=== PATIENT | female | born 1995 | race Caucasian/White ===

== ENCOUNTER 2024-09-28 13:59 | Emergency (ER) | payer OTHER, SELFPAY ==
[2024-09-28 14:00] VITALS: BP 122/74; PULSE 68; RESP 16; TEMP 36.6; O2SAT 100
--- NOTE | 2024-09-28 14:37 | ED_ITS ---
HPI - Female Genitourinary General Chief complaint: Vaginal Bleeding <Lisa Brambila APRN - Last Filed: 09/28/24 14:37> Stated complaint: vag bleed, has IUD? <Lisa Brambila APRN - Last Filed: 09/28/24 14:37> Time Seen by Provider: 09/28/24 14:25 <Lisa Brambila APRN - Last Filed: 09/28/24 14:37> Focused HPI: Patient i GENERAL: Well-appearing, well-nourished, and in no acute distress. HEAD: Normocephalic, atraumatic. CHEST: Clear to auscultation. ?No respiratory distress. HEART: Regular rate and rhythm.? NEURO: ?Alert and oriented x3. Patient screened in triage and initial orders placed.? ?Additional care and disposition to be based upon?diagnostic testing and treatment. <Lisa Brambila APRN - Last Filed: 09/28/24 14:37> History of Present Illness HPI Narrative: 29-year-old female presenting with vaginal spotting. States that she has a copper IUD and has regular periods. Her last 1 was at the beginning of this month. Over the last couple days she has had dark brown spotting with some mild cramping which is improved. She took 2 at-home tests which were negative. <Quyen Rangel MD - Last Filed: 09/28/24 19:26> Related Data Allergies/Adverse reactions: Allergies Allergy/AdvReac Type Severity Reaction Status Date / Time bacitracin Allergy Intermediate Unverified 08/09/14 17:09 neomycin Allergy Intermediate Unverified 08/09/14 17:09 polymyxin B Allergy Intermediate Unverified 08/09/14 17:09 <Lisa Brambila APRN - Last Filed: 09/28/24 14:37> Review of Systems Review of Systems: All systems reviewed & are unremarkable except as noted in HPI and below <Quyen Rangel MD - Last Filed: 09/28/24 19:26> Exam Narrative: GENERAL: Well-appearing, well-nourished, and in no acute distress. HEAD: Normocephalic, atraumatic. EYES: PERRLA and EOMI. ENT: Grossly unremarkable NECK: Supple. CHEST: No respiratory distress. HEART: Regular rate and rhythm ABDOMEN: Soft, nontender, nondistended EXTREMITIES: Normal range of motion SKIN: Warm, dry, no rash. NEURO: Alert and oriented x3. PSYCH: Normal mood and affect. <Quyen Rangel MD - Last Filed: 09/28/24 19:26> Course Vital Signs Vital signs: Vital Signs Temperature 97.8 F 09/28/24 14:00 Pulse Rate 68 09/28/24 14:00 Respiratory Rate 16 09/28/24 14:00 Blood Pressure 122/74 09/28/24 14:00 Pulse Oximetry 100 09/28/24 14:00 Oxygen Delivery Room Air 09/28/24 14:00 Temperature 97.8 F 09/28/24 14:00 Pulse Rate 68 09/28/24 14:00 Respiratory Rate 16 09/28/24 14:00 Blood Pressure 122/74 09/28/24 14:00 Pulse Oximetry 100 09/28/24 14:00 Oxygen Delivery Room Air 09/28/24 14:00 <Lisa Brambila, CENTRIFUGAL EXTRACTOR OPERATOR - Last Filed: 09/28/24 14:37> Vital Signs Temperature 97.8 F 09/28/24 14:00 Pulse Rate 68 09/28/24 14:00 Respiratory Rate 16 09/28/24 14:00 Blood Pressure 122/74 09/28/24 14:00 Pulse Oximetry 100 09/28/24 14:00 Oxygen Delivery Room Air 09/28/24 14:00 Temperature 97.8 F 09/28/24 14:00 Pulse Rate 68 09/28/24 14:00 Respiratory Rate 16 09/28/24 14:00 Blood Pressure 122/74 09/28/24 14:00 Pulse Oximetry 100 09/28/24 14:00 Oxygen Delivery Room Air 09/28/24 14:00 <Quyen Rangel MD - Last Filed: 09/28/24 19:26> MDM - Female Genitourinary MDM Narrative Medical decision making narrative: 29-year-old female presenting with a couple of days of vaginal spotting. Vitals are stable. Exam is unremarkable. Beta hCG is undetectable. Feel patient is safe for outpatient management. Discussed appropriate supportive care and return precautions. She is agreeable this plan. Discharged in stable condition. <Quyen Rangel MD - Last Filed: 09/28/24 19:26> Lab Data Labs: Lab Results 09/28/24 Range/Units 18:23 Beta HCG, Quant < 2.39 mIU/ML <Lisa Brambila APRN - Last Filed: 09/28/24 14:37> Lab Results 09/28/24 Range/Units 18:23 Beta HCG, Quant < 2.39 mIU/ML <Quyen Rangel MD - Last Filed: 09/28/24 19:26> Critical Care Time Critical Care Time Critical Care Time: No <Quyen Rangel MD - Last Filed: 09/28/24 19:26> Discharge Plan Discharge Clinical Impression: Dysfunctional uterine bleeding <Lisa Brambila APRN - Last Filed: 09/28/24 14:37> Patient Disposition: Home, Self-Care <Lisa Brambila APRN - Last Filed: 09/28/24 14:37> Condition: Stable <Lisa Brambila APRN - Last Filed: 09/28/24 14:37> Instructions: Antibiotic Form, Abnormal (Dysfunctional) Uterine Bleeding (ED) <Lisa Brambila APRN - Last Filed: 09/28/24 14:37> Additional Instructions: If your symptoms worsen or other concerning symptoms arise, please return to the ER. <Lisa Brambila APRN - Last Filed: 09/28/24 14:37> Patient Language: Yakut <Lisa Brambila APRN - Last Filed: 09/28/24 14:37> Follow-up/Referrals: Lj Santiago MD [Physician] - <Lisa Brambila APRN - Last Filed: 09/28/24 14:37>
[2024-09-28 18:59] LABS: Beta HCG Quantitative < 2.39 mIU/ML
[2024-09-28 19:30] VITALS: BP 120/72; PULSE 90; RESP 20; O2SAT 98
== END 2024-09-28 19:34 | disposition home or self-care (01) ==
PROVIDERS: Emergency Provider Emergency Medicine
DX: N93.8 Other specified abnormal uterine and vaginal bleeding (principal)
CPT/HCPCS: 36415; 84702; 99283

== ENCOUNTER 2025-04-15 21:12 | Emergency (ER) | payer OTHER, SELFPAY ==
--- NOTE | ~2025-04-15 | XR_ITS ---
XR ankle LT min 3V Ordering provider: Zander Millan MD History: . injury . Comparison: None. FINDINGS: BONES: No acute fracture or dislocation. JOINT SPACES: The ankle mortise is normal. SOFT TISSUES: Soft tissue swelling over the lateral malleolus. IMPRESSION: No acute osseous abnormality left ankle. Reviewed, dictated and finalized at location A.
--- OUTSIDE RECORDS SUMMARY | 2025-04-15 21:15 | XMS_ITS | Clinical Summary ---
Author Organization [facility] Address [address] [place] [address] Care Team Providers Care Dairy Department Manager Name Role Phone Henri East MD Primary Care Provider [phone] Allergies Active Allergy Reactions Criticality Noted Date Comments Bacitracin Rash Reaction: Rash, , Reaction: Rash, Neomycin Rash Reaction: Rash, Dttuskcu-Ovmbvsgxil-Bhbsqet in Polymyxin B Rash Reaction: Rash, Medications clobetasoL (TEMOVATE) 0.05 % creamIndications :Psoriasis vulgaris Apply topically daily as needed (for psoriasis flares) As needed for psoriasis rash, stop once flat and asymptomatic 30 g 1 4 Active BinaxNOW COVID-19 Ag Self Test kit TEST DIRECTED TODAY 5 Active escitalopram (LEXAPRO) 10 mg tablet for crush-dissolve partial tablet doses 4 Active gabapentin (NEURONTIN) 100 mg capsule 5 Active Taltz Autoinjector auto-injectorInd ications:Psorias is vulgaris INJECT 80 MG (1 PEN) UNDER THE SKIN EVERY MONTH 3 mL 3 5 Active Active Problems Problem Noted Date Diagnosed Date Depression 07/26/2016 Overview (01/11/2017): Depression Obesity with body mass index 30 or greater 07/22 Overview (01/11/2017): BMI 30+ - obesity Anal fissure 08/26/2012 Psoriasis 04/30/2011 Overview (01/16/2018): Description: Psoriasis Acne 04/30/2011 Overview (01/16/2018): Description: Acne Immunizations Immunization Administration Dates Next Due HPV, Quadrivalent 07/26/2016,07/22/2015 Moderna Sars-cov-2 Bivalent Vaccine 50 Mcg/0.5 mL (12+ YRS)-Blue/Nielsen 05/07/2022 Family History Medical History Relation Name Comments Diabetes Father Diabetes mellit us; Prostate cancer Maternal Grandfather Canc er, prostate; Relation Name Status Comments Father Maternal Grandfather Social History Tobacco Use Types Packs/Day Years Used Date Smoking Tobacco: Some Days Cigarettes Smokeless Tobacco: Never Tobacco Cessation:Ready to Q uit: Not Asked; Counseling Given: Not Answered Alcohol Use Standard Drinks/Week Comments No 0 (1 standard drink = 0.6 oz pur e alcohol) Comments Unknown Sex and Gender Information Value Date Recorded Sex Assigned at Not on file Legal Sex Female 3:50 AM 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 Gender Identity Non-Binary 11/02/2021 1:13 PM 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 ENGINEER Sexual Orientation Not on file Obstetrics History Last Filed Vital Signs Vital Sign Reading Time Taken Comments Blood Pressure 120/80 07/26/2016 1:49 PM CDT Pulse - - Temperature - - Respiratory Rate - - Oxygen Saturation - - Inhaled Oxygen Concentration - - Weight 68.9 kg (152 lb) 07/26/2016 1:49 PM CDT Height 150.5 cm (4' 11.25) 07/26/2016 1:49 PM C DT Body Mass Index 30.44 07/26/2016 1:49 PM CDT Plan of Treatment Health Maintenance Due Date Last Done Comments Depression Screening 1995 Hepatitis C Screening 1995 DTaP/Tdap/Td Vaccine (1 - Tdap) 2006 Varicella Vaccines (1 of 2 - 13+ 2-dose series) 2008 Hepatitis B Screening 2013 Regular Well Visit/Exam 18-64 2013 Pneumococcal vaccine <65 (1 of 2 - PCV) 2014 HPV Vaccines (3 - 3-dose series) 10/18/2016 07/26/20 16, 07/22/2015 Cervical Cancer Screening 07/26/2017 07/26/2016 Covid-19 Vaccine (4 - 2024-25 season) 2024 05/07/2022, 02/10/2021, 01/13/2021 Influenza Vaccine (Season Ended) 2025 Procedures Procedure Name Priority Date/Time Associated Diagnosis Comments THINPREP IMAGING PAP REFLEX HPV MRNA E6/E7 Routine 07/26/2016 3:52 PM CDT from Last 3 Months or Most Recently Relevant to Health Maintenance Results * ThinPrep Imaging Pap Reflex HPV mRNA E6/E7 (07/26/2016 3:52 PM CDT) SOURCE: SEE NOTE [facility] HISTORICAL RESULTS Comment:Cervix, Endocervix CLINICAL INFORMATION: SEE NOTE [facility] HISTORICAL RESULTS Comment:Information not prov ided LMP SEE NOTE [facility] HISTORICAL RESULTS Comment:07/08/16 Previous Pap SEE NOTE [facility] HISTORICAL RESULTS Comment:NONE GIVEN Prev. Bx SEE NOTE [facility] HISTORICAL RESULTS Comment:NONE GIVEN Pap, specimen adequacy SEE NOTE [facility] HISTORICAL RESULTS Comment: Satisfactory for evaluation. Endocervical/transformation zone component present. HPV interp SEE NOTE [facility] HISTORICAL RESULTS Comment:Negative for intraep ithelial lesion or malignancy. Lactobacillus species SEE NOTE [facility] HISTORICAL RESULTS Comment: This Pap test has been evaluated with computer assisted technology. Visual Merchandising Manager SEE NOTE [facility] HISTORICAL RESULTS Comment: BAB, CT(ASCP) CT screening location: [place] [address] [place] [address] Test performed at [facility] [address] [address] Director: FLAKITO NOYOLA MD 07/26/2016 3:52 PM CDT us Cristal Lopez MD LAB PATHOLOGY ORDERAB LES Final Result [facility] HISTORICAL RESULTS from Last 3 Months or Most Recently Relevant to Health Maintenance [facility] [employer] OPEN ACCESS Care Teams Dairy Department Manager Relationship Specialty Start Date End Date Henri East MD PCP - General Internal Medicine 12/18/18
--- OUTSIDE RECORDS SUMMARY | 2025-04-15 21:15 | XMS_ITS | Referral Summary ---
Author Organization [facility] Address [address] [place] [address] Care Team Providers Care Billing Clerk Name Role Phone Henri East MD Primary Care Provider [phone] Allergies Active Allergy Reactions Criticality Noted Date Comments Bacitracin Rash Reaction: Rash, , Reaction: Rash, Neomycin Rash Reaction: Rash, Dsqvtzbq-Fgujuyygok-Accdopj in Polymyxin B Rash Reaction: Rash, Medications [...] Vaccine 50 Mcg/0.5 mL (12+ YRS)-Blue/Nielsen 05/07/2022 Social History Tobacco Use Types Packs/Day Years [...] on file Legal Sex Female 3:50 AM BOARD OF DIRECTORS Gender Identity Non-Binary 11/02/2021 1:13 PM BOARD OF DIRECTORS Sexual Orientation Not on file Last Filed Vital Signs Vital Sign Reading [...] 07/26/2016 1:49 PM CDT Plan of Treatment Not on file Procedures Procedure Name Priority Date/Time Associated Diagnosis [...] has been evaluated with computer assisted technology. Spinning Room Worker SEE NOTE [facility] HISTORICAL RESULTS Comment: BAB, CT(ASCP) CT screening location: [place] [address] [place] [address] Test performed at [facility] [address] [place] [address] Director: FLAKITO NOYOLA MD 07/26/2016 3:52 PM CDT Cristal Lopez MD LAB PATHOLOGY ORDERAB LES Final Result [facility] HISTORICAL RESULTS from Last 3 Months or Most Recently Relevant to Health Maintenance Insurance [employer] ALLEGIANCE [employer] OPEN ACCESS Care Teams Billing Clerk Relationship Specialty Start Date End Date Henri East MD PCP - General Internal Medicine 12/18/18
--- OUTSIDE RECORDS SUMMARY | 2025-04-15 21:15 | XMS_ITS | Encounter Summary ---
Author Organization [facility] Address [address] [place] [address] Phone Care Team Providers Care Mangle Roller Name Role Phone Henri East MD Primary Care Provider [phone] Encounter Details Date Type Department Care Team (Late st Contact Info) Description 09/02/2023 Telephone [facility] Scheduling [address] [place] [address] Eugene Leiva MD [address] [id number] Social History Tobacco Use Types Packs/Day Years Used Date Smoking Tobacco: Every Day Smokeless Tobacco: Never Alcohol Use Standard Drinks/Week Comments No 0 (1 standard drink = 0.6 oz pur e alcohol) Comments Unknown Sex and Gender Information Value Date Recorded Sex Assigned at Not on file Legal Sex Female 3:50 AM FLOOR RUNNER Gender Identity Non-Binary 11/02/2021 1:13 PM FLOOR RUNNER Sexual Orientation Not on file documented as of this encounter Plan of Treatment Not on file documented as of this encounter Visit Diagnoses Not on filedocumented in this encounter Care Teams Mangle Roller Relationship Specialty Start Date End Date Henri East MD PCP - General Internal Medicine 12/18/18 documented as of this encounter
[2025-04-15 21:40] VITALS: BP 146/91; PULSE 86; RESP 18; TEMP 36.3; O2SAT 100
--- NOTE | 2025-04-15 21:43 | ED_ITS ---
HPI - Extremity Injury (Lower) General Chief Complaint: Extremity Injury, Lower Stated Complaint: L ANKLE PAIN Time Seen by Provider: 04/15/25 21:39 Source: patient Mode of arrival: wheelchair Limitations: no limitations History of Present Illness HPI Narrative: This is a 29-year-old female that presents to the emergency department for left ankle pain. Reports she rolled her ankle at work this afternoon. Reports decreased range of motion. Unable to bear weight. Denies numbness. Related Data Allergies Allergy/AdvReac Type Severity Reaction Status Date / Time bacitracin Allergy Intermediate Unknown Verified 04/15/25 21:14 neomycin Allergy Intermediate Unknown Verified 04/15/25 21:14 polymyxin B Allergy Intermediate Unknown Verified 04/15/25 21:14 Review of Systems Review of Systems: All systems reviewed & are unremarkable except as noted in HPI and below Exam Narrative: GENERAL: Well-appearing, well-nourished, and in no acute distress. HEAD: Normocephalic, atraumatic. EYES: EOMI. EXTREMITIES: Normal range of motion. No obvious deformity. Mild swelling about the lateral malleoli. Normal DP pulse. Normal sensation SKIN: Warm, dry, no rash. NEURO: No focal deficits. Alert and oriented x3. PSYCH: Normal mood and affect Course Vital Signs Vital signs: Vital Signs Temperature 97.4 F L 04/15/25 21:40 Pulse Rate 86 04/15/25 21:40 Respiratory Rate 18 04/15/25 21:40 Blood Pressure 146/91 H 04/15/25 21:40 Pulse Oximetry 100 04/15/25 21:40 Oxygen Delivery Room Air 04/15/25 21:40 Temperature 97.4 F L 04/15/25 21:40 Pulse Rate 86 04/15/25 21:40 Respiratory Rate 18 04/15/25 21:40 Blood Pressure 146/91 H 04/15/25 21:40 Pulse Oximetry 100 04/15/25 21:40 Oxygen Delivery Room Air 04/15/25 21:40 Procedures Orthopedic Splinting/Casting Injury #1: Splinting/Casting Date: 04/15/25 Splinting/Casting Time: 21:48 Side: left Lower Extremity Immobilizer: Diego wrap (Patient has a wrap from home) Pre-Procedure Neuro Vascular Exam: normal Post-Procedure Neuro Vascular Exam: normal Other Orthopedic Equipment: crutches MDM - Extremity Injury (Lower) MDM Narrative Medical decision making narrative: This is a 29 year old female that presents to the ER for left ankle pain after an injury today. Ankle x-ray without acute osseous abnormalities. Patient had a wrap from home, given crutches. Instructed on further care of ankle sprain. She is to follow up with primary provider. She was given warnings to return to the ER Differential Diagnosis Differential diagnosis: Likely ankle sprain and strain and ankle fracture Imaging Data Radiologist's impression: ITS Impressions Ankle X-Ray 04/15/25 21:31 IMPRESSION: No acute osseous abnormality left ankle. Critical Care Time Critical Care Time Critical Care Time: No Discharge Plan Discharge Clinical Impression: Left ankle sprain Qualifiers: Encounter type: initial encounter Involved ligament of ankle: unspecified ligament Qualified Code(s): S93.402A - Sprain of unspecified ligament of left ankle, initial encounter Patient Disposition: Home Condition: Stable Instructions: Ankle Sprain (ED) Additional Instructions: Return to the ER if you experience fever, redness and swelling of your extremity, numbness or any other symptoms that are concerning to you Wear DIEGO wrap and use crutches. No weight on the affected leg until able to bear weight without pain. Ice and elevate extremity. Pain medication as needed and directed. Follow up with primary care doctor for further care. Patient Language: Sinhala Follow-up/Referrals: PHYSICIAN,CARPET FINISHING SUPERVISOR [Primary Care Provider] - Dean Blanco MD [Physician] - Stand Alone Forms: Work/School Release IP
--- OUTSIDE RECORDS SUMMARY | 2025-04-15 21:57 | XMS_ITS | Encounter Summary ---
Author Organization [facility] Address [address] [place] [address] Phone Care Team Providers Care Scholarship Counselor Name Role Phone Henri East MD Primary Care Provider [phone] Encounter Details Date Type Department Care Team (Late st Contact Info) Description 09/02/2023 Telephone [facility] Scheduling [address] [place] [address] Eugene Leiva MD [address] [id number] Social History Tobacco Use Types Packs/Day Years Used Date Smoking Tobacco: Every Day Smokeless Tobacco: Never Alcohol Use Standard Drinks/Week Comments No 0 (1 standard drink = 0.6 oz pur e alcohol) Comments Unknown Sex and Gender Information Value Date Recorded Sex Assigned at Not on file Legal Sex Female 3:50 AM ANIMAL DOCTOR Gender Identity Non-Binary 11/02/2021 1:13 PM ANIMAL DOCTOR Sexual Orientation Not on file documented as of this encounter Plan of Treatment Not on file documented as of this encounter Visit Diagnoses Not on filedocumented in this encounter Care Teams Scholarship Counselor Relationship Specialty Start Date End Date Henri East MD PCP - General Internal Medicine 12/18/18 documented as of this encounter
--- OUTSIDE RECORDS SUMMARY | 2025-04-15 21:57 | XMS_ITS | Clinical Summary ---
Author Organization [facility] Address [address] [place] [address] Care Team Providers Care Digital Strategy Manager Name Role Phone Henri East MD Primary Care Provider [phone] Allergies Active Allergy Reactions Criticality Noted Date Comments Bacitracin Rash Reaction: Rash, , Reaction: Rash, Neomycin Rash Reaction: Rash, Cjkpucfu-Sclckuitoz-Rruropt in Polymyxin B Rash Reaction: Rash, Medications [...] on file Legal Sex Female 3:50 AM COMPUTER ASSISTANT Gender Identity Non-Binary 11/02/2021 1:13 PM COMPUTER ASSISTANT Sexual Orientation Not on file Obstetrics History [...] has been evaluated with computer assisted technology. Maintenance Helper Utility Engineer SEE NOTE [facility] HISTORICAL RESULTS Comment: BAB, CT(ASCP) CT screening location: [place] [address] [place] [address] Test performed at [email or web address] [address] [address] Director: FLAKITO NOYOLA MD 07/26/2016 3:52 PM CDT us Cristal Lopez MD LAB PATHOLOGY ORDERAB LES Final Result [facility] HISTORICAL RESULTS from Last 3 Months or Most Recently Relevant to Health Maintenance [facility] [employer] OPEN ACCESS Care Teams Digital Strategy Manager Relationship Specialty Start Date End Date Henri East MD PCP - General Internal Medicine 12/18/18
--- OUTSIDE RECORDS SUMMARY | 2025-04-15 21:57 | XMS_ITS | Referral Summary ---
Author Organization [facility] Address [address] [place] [address] Care Team Providers Care Casting And Pasting Supervisor Name Role Phone Henri East MD Primary Care Provider [phone] Allergies Active Allergy Reactions Criticality Noted Date Comments Bacitracin Rash Reaction: Rash, , Reaction: Rash, Neomycin Rash Reaction: Rash, Acydsbrw-Ggnhvnttsp-Qqekwdc in Polymyxin B Rash Reaction: Rash, Medications [...] on file Legal Sex Female 3:50 AM DESIGN ARCHITECT Gender Identity Non-Binary 11/02/2021 1:13 PM DESIGN ARCHITECT Sexual Orientation Not on file Last Filed [...] has been evaluated with computer assisted technology. Design Sales Consultant SEE NOTE [facility] HISTORICAL RESULTS Comment: BAB, CT(ASCP) CT screening location: [place] [address] [place] [address] Test performed at [facility] [address] [place] [address] Director: FLAKITO NOYOLA MD 07/26/2016 3:52 PM CDT Cristal Lopez MD LAB PATHOLOGY ORDERAB LES Final Result [facility] HISTORICAL RESULTS from Last 3 Months or Most Recently Relevant to Health Maintenance Insurance [employer] ALLEGIANCE [employer] OPEN ACCESS Care Teams Casting And Pasting Supervisor Relationship Specialty Start Date End Date Henri East MD PCP - General Internal Medicine 12/18/18
== END 2025-04-15 21:53 | disposition home or self-care (01) ==
LOC: ANHED 21:54
PROVIDERS: Emergency Provider Physician Assistant
DX: S93.402A Sprain of unspecified ligament of left ankle, initial encounter (principal); X50.0XXA Overexertion from strenuous movement or load, initial encounter
CPT/HCPCS: 73610; 99283